=== PATIENT | male | born 1995 | race Caucasian/White ===

== ENCOUNTER → 2017-10-08 | Outpatient (CLI) | payer BC ==
[2017-10-08 14:28] VITALS: BP 147/82; PULSE 85; RESP 15; TEMP 97.5; BMI 50.7
--- NOTE | 2017-10-08 15:43 | P.HPBAR ---
Bariatric H&P - History & Physicial H&P Date: 10/08/17 History & Physicial: Visit/CC: VSG consult Patient initial contact: Initial weight: 169.734 kg Initial weight in pounds: 374.20 Height: 6 ft Initial BMI: 50.7 Last weight: Current weight: 169.734 kg Current weight in pounds: 374.20 Current BMI: 50.7 [place] body weight (based on NIH guidelines): 80.739 kg Excess body weight loss: 0.0% The patient is a 22 year-old M who presents for Bariatric Assessment. She presents today for sleeve gastrectomy consultation. Patient has had lifetime problems obesity. His BMI is 51. Past Medical History Past Medical History: No Reported History Additional Past Medical History / Comment(s): seasonal allergies History of Any Multi-Drug Resistant Organisms: None Reported Past Surgical History: Appendectomy Additional Past Surgical History / Comment(s): wisdom teeth extracted Past Anesthesia/Blood Transfusion Reactions: No Reported Reaction Additional Past Anesthesia/Blood Transfusion Reaction / Comm: No transfusion to date Smoking Status: Never smoker - Past Family History Father Family Medical History: Cancer, Diabetes Mellitus Additional Family Medical History / Comment(s): Non-hodgkins lymphoma Mother Family Medical History: No Reported History Brother(s) Family Medical History: No Reported History Surgical - Exam Vital Signs Temp Pulse Resp BP 97.5 F L 85 15 147/82 10/08/17 14:24 10/08/17 14:24 10/08/17 14:24 10/08/17 14:24 - General well developed, no distress - Eyes PERRL - ENT normal pinna - Neck no masses - Respiratory normal expansion - Cardiovascular Rhythm: regular - Abdomen Abdomen: soft, non tender Bariatric Assessment & Plan Plan: Morbid obesity with severe coronary disease. Patient will be scheduled for sleeve gastrectomy once his insurance authorization is performed. I lengthy discussion with patient regarding gastric sleeve surgery. I went over the risks and benefits procedure including conversion open procedure and injury to the stomach liver spleen. I discussed the risk of gastric staple line disruption, bleeding or perforation. Patient was scheduled for EGD. Bariatric Checklist Checklist: Plan: Checklist: EGD: 1. Hiatal hernia: 2. H. Pylori: HgbA1c: Vitamin D: Smoking: Never smoker Primary care physician referral: jennifer riggs ([place], [place]) Psychiatry clearance: Cardiology clearance: Sleep study: Diet journal: VTE risk score: VTE risk level: Rehab needs at discharge:
[2017-10-08 16:22] LABS: HCT 44.5 % (39.0-53.0); HGB 14.9 gm/dL (13.0-17.5); MCH 29.6 pg (25.0-35.0); MCHC 33.5 g/dL (31.0-37.0); MCV 88.3 fL (80.0-100.0); Mean Platelet Volume 7.1; Platelet Count 207 k/uL (150-450); RBC 5.04 m/uL (4.30-5.90); RDW 12.9 % (11.5-15.5); WBC 6.4 k/uL (3.8-10.6)
[2017-10-09 01:09] LABS: Vitamin D 25 Hydroxy 14.3 ng/mL (30.0-100.0)
[2017-10-09 04:01] LABS: Hemoglobin A1C 5.1 % (4.0-6.0)
== END | disposition home or self-care (01) ==
LOC: BARWHC3 14:14
PROVIDERS: ATTEND Family Medicine
DX: E66.01 Morbid (severe) obesity due to excess calories (principal); I25.10 Atherosclerotic heart disease of native coronary artery without angina pectoris; E44.1 Mild protein-calorie malnutrition; J30.2 Other seasonal allergic rhinitis; Z68.43 Body mass index [BMI] 50.0-59.9, adult; Z98.890 Other specified postprocedural states
CPT/HCPCS: 36415; 82306; 82607; 83036; 84443; 85027; 93005; 99201

== ENCOUNTER 2017-10-19 08:28 | Day surgery (SDC) | payer BC ==
[2017-10-17 09:31] VITALS: BMI 49.1
[~2017-10-19 08:28] MED LIST: LACTATED RINGERS 1,000 ML IV SCH; LIDOCAINE 1% 20 ML VIAL (10MG/ML) FOR IV START INTRADERMA PRN
[2017-10-19 09:53] VITALS: TEMP 98
[2017-10-19] MEDS ORDERED: PROPOFOL 10 MG/ML 20 ML VIAL IV ONE (10:05)
[2017-10-19] MEDS ORDERED: LIDOCAINE 1% INJ 10MG/ML (20 ML MDV) ONE (10:05)
[2017-10-19] MEDS ORDERED: GLYCOPYRROLATE 0.2 MG/ML 2 ML VIAL ONE (10:05)
--- NOTE | 2017-10-19 10:13 | P.GSHP ---
History of Present Illness H&P Date: 10/19/17 Chief Complaint: GERD, morbid obesity This a 20-year-old male with BMI 49. Patient presents today for EGD. He's had issues with GERD. Past Medical History Past Medical History: No Reported History Additional Past Medical History / Comment(s): seasonal allergies History of Any Multi-Drug Resistant Organisms: None Reported Past Surgical History: Appendectomy Additional Past Surgical History / Comment(s): wisdom teeth extracted Past Anesthesia/Blood Transfusion Reactions: No Reported Reaction Additional Past Anesthesia/Blood Transfusion Reaction / Comment(s): No transfusion to date Past Psychological History: No Psychological Hx Reported Smoking Status: Never smoker Past Alcohol Use History: Rare Past Drug Use History: None Reported - Past Family History Father Family Medical History: Cancer, Diabetes Mellitus Additional Family Medical History / Comment(s): Non-hodgkins lymphoma Mother Family Medical History: No Reported History Brother(s) Family Medical History: No Reported History Medications and Allergies Home Medications Medication Instructions Recorded Confirmed Type Cetirizine HCl [Zyrtec] 10 mg PO DAILY PRN 10/08/17 10/19/17 History Allergies Allergy/AdvReac Type Severity Reaction Status Date / Time banana Allergy Severe Anaphylaxis Verified 10/19/17 09:46 hazelnut Allergy Severe Anaphylaxis Verified 10/19/17 09:46 walnut Allergy Severe Anaphylaxis Verified 10/19/17 09:46 Surgical - Exam Vital Signs Temp Pulse Resp BP Pulse Ox 98.0 F 77 18 134/78 100 10/19/17 09:51 10/19/17 09:51 10/19/17 09:51 10/19/17 09:51 10/19/17 09:51 - General well developed, no distress - Eyes PERRL - ENT normal pinna - Neck no masses - Respiratory normal expansion - Cardiovascular Rhythm: regular - Abdomen Abdomen: soft, non tender Assessment and Plan Assessment: Morbid obesity with BMI 49 GERD we'll perform EGD.
--- NOTE | 2017-10-19 10:20 | P.OP ---
Date of Procedure: 10/19/17 Preoperative Diagnosis: Morbid obesity BMI 49 GERD Postoperative Diagnosis: Antral gastritis Anesthesia: MAC Surgeon: Refugio Bernard Pathology: other (Antrum) Condition: stable Disposition: PACU Description of Procedure: The patient's placed on the endoscopy table in the lateral position. He received IV sedation. The gastroscope placed oropharynx passed in the esophagus into the stomach. Scope was then placed through the pylorus. The first and second portion of the duodenum appeared normal. Scope was then brought back the antrum this was mildly inflamed. A biopsies was performed. The scope was then retroflexed and the remainder stomach appeared normal. There was no significant hiatal hernia. The GE junction was at 40 cm. The distal esophagus appeared mildly inflamed a biopsies was performed. The proximal esophagus appeared normal. Scope was withdrawn for patient.
[2017-10-19 10:41] VITALS: BP 107/64; PULSE 56; RESP 17
== END 2017-10-19 10:50 | disposition home or self-care (01) ==
LOC: ORWHC2ENDO 08:28
PROVIDERS: ATTEND Surgery
DX: K29.50 Unspecified chronic gastritis without bleeding (principal); E66.01 Morbid (severe) obesity due to excess calories; Z68.42 Body mass index [BMI] 45.0-49.9, adult; Z80.7 Family history of other malignant neoplasms of lymphoid, hematopoietic and related tissues; Z79.899 Other long term (current) drug therapy
CPT/HCPCS: 88305; 43239; J2001; J2704

== ENCOUNTER → 2017-12-24 | Outpatient (CLI) | payer BC ==
[2017-12-24 15:09] VITALS: BMI 51.5
== END | disposition home or self-care (01) ==
LOC: BARWHC3 08:31
PROVIDERS: ATTEND Surgery
DX: E66.01 Morbid (severe) obesity due to excess calories (principal)
CPT/HCPCS: 97804

== ENCOUNTER → 2018-05-27 | Outpatient (CLI) | payer BC ==
[2018-05-27 14:53] VITALS: BP 144/88; PULSE 82; TEMP 98.2; BMI 51.7
--- NOTE | 2018-05-31 14:41 | P.HPBAR ---
Bariatric H&P - History & Physicial H&P Date: 05/27/18 History & Physicial: Visit/CC: PRESURGICAL VISIT Patient initial contact: Initial weight: 169.734 kg Initial weight in pounds: 374.20 Height: 6 ft Initial BMI: 50.7 Last weight: Current weight: 173.272 kg Current weight in pounds: 382.00 Current BMI: 51.7 [place] body weight (based on NIH guidelines): 80.739 kg Excess body weight loss: The patient is a 22 year-old M who presents for Bariatric Assessment. Patient presents today for presurgical consultation for sleeve gastrectomy. He has had issues with morbid obesity. His BMI is 52. He's developed severe comorbidities related to morbid obesity. He is interested in the gastric sleeve. Past Medical History Past Medical History: No Reported History Additional Past Medical History / Comment(s): Seasonal allergies. History of Any Multi-Drug Resistant Organisms: None Reported Past Surgical History: Appendectomy Additional Past Surgical History / Comment(s): [place] teeth extracted. Past Anesthesia/Blood Transfusion Reactions: No Reported Reaction Additional Past Anesthesia/Blood Transfusion Reaction / Comm: No transfusion to date. Past Psychological History: No Psychological Hx Reported Smoking Status: Never smoker Past Alcohol Use History: Rare Past Drug Use History: None Reported - Past Family History Father Family Medical History: Cancer, Diabetes Mellitus Additional Family Medical History / Comment(s): Non-hodgkins lymphoma. Mother Family Medical History: No Reported History Brother(s) Family Medical History: No Reported History Surgical - Exam Vital Signs Temp Pulse BP 98.2 F 82 144/88 05/27/18 14:51 05/27/18 14:51 05/27/18 14:51 - General well developed, no distress - Eyes PERRL - ENT normal pinna - Neck no masses - Respiratory normal expansion - Cardiovascular Rhythm: regular - Abdomen Abdomen: soft, non tender Bariatric Assessment & Plan Plan: Morbid obesity with BMI 52. Patient has a good understanding of the sleeve gastrectomy. Went over the risks and benefits of procedure including complications such as gastric perforation bleeding or scarring. The patient was scheduled for EGD. Bariatric Checklist Checklist: Plan: Checklist: EGD: 1. Hiatal hernia: 2. H. Pylori: HgbA1c: Vitamin D: Smoking: Never smoker Primary care physician referral: jennifer riggs ([place], [place]) Psychiatry clearance: Cardiology clearance: Sleep study: Diet journal: VTE risk score: VTE risk level: Rehab needs at discharge:
== END | disposition home or self-care (01) ==
LOC: BARWHC3 13:25
PROVIDERS: ATTEND Surgery
DX: E66.01 Morbid (severe) obesity due to excess calories (principal); Z68.43 Body mass index [BMI] 50.0-59.9, adult; Z90.49 Acquired absence of other specified parts of digestive tract
CPT/HCPCS: 99211

== ENCOUNTER → 2018-05-27 | Outpatient (CLI) | payer BC ==
[2018-05-27 15:24] LABS: Basophils # (A) 0.1 k/uL (0-0.2); Basophils % (A) 1 %; Eosinophils # (A) 0.5 k/uL (0-0.7); Eosinophils % (A) 7 %; HGB 15.6 gm/dL (13.0-17.5); Lymphocytes # (A) 1.5 k/uL (1.0-4.8); Lymphocytes % (A) 20 %; MCH 30.2 pg (25.0-35.0); MCHC 33.2 g/dL (31.0-37.0); MCV 90.9 fL (80.0-100.0); Mean Platelet Volume 6.7; Monocytes # (A) 0.5 k/uL (0-1.0); Monocytes % (A) 6 %; Neutrophils # (A) 4.6 k/uL (1.3-7.7); Neutrophils % (A) 63 %; Platelet Count 240 k/uL (150-450); RBC 5.17 m/uL (4.30-5.90); RDW 12.6 % (11.5-15.5); WBC 7.3 k/uL (3.8-10.6)
[2018-05-27 15:31] LABS: ALT 37 U/L (21-72); AST 27 U/L (17-59); Albumin 4.9 g/dL (3.5-5.0); Alkaline Phosphatase 65 U/L (38-126); Anion Gap 13 mmol/L; Blood Urea Nitrogen 25 mg/dL (9-20); Calcium 9.9 mg/dL (8.4-10.2); Carbon Dioxide 21 mmol/L (22-30); Chloride 104 mmol/L (98-107); Glucose 86 mg/dL (74-99); Potassium 4.3 mmol/L (3.5-5.1); Sodium 138 mmol/L (137-145); Total Bilirubin 0.5 mg/dL (0.2-1.3); Total Protein 7.8 g/dL (6.3-8.2)
== END ==
LOC: LABPAT 13:57
PROVIDERS: ATTEND Surgery
DX: Z01.812 Encounter for preprocedural laboratory examination (principal)
CPT/HCPCS: 36415; 80053; 85025

== ENCOUNTER 2018-05-29 07:46 | Inpatient (IN) | payer BC ==
[2018-05-24 11:45] VITALS: BMI 48.7
[~2018-05-29 07:46] MED LIST changes: +ENOXAPARIN 40 MG/0.4 ML SYRINGE SQ ONE; -LACTATED RINGERS 1,000 ML IV SCH
--- NOTE | 2018-05-29 11:30 | P.GSHP ---
History of Present Illness H&P Date: 05/29/18 Chief Complaint: Morbid obesity This a 22-year-old male with history of morbid obesity. Patient presents today for laparoscopic sleeve gastrectomy. Patient has had lifetime problems obesity. He has developed severe comorbidities related to morbid obesity. Patient has been well detailed on the procedure sleeve gastric. He understood the risks and benefits of procedure including possible conversion to the open procedure and injury to the stomach liver or spleen. Past Medical History Past Medical History: No Reported History Additional Past Medical History / Comment(s): Seasonal allergies. History of Any Multi-Drug Resistant Organisms: None Reported Past Surgical History: Appendectomy Additional Past Surgical History / Comment(s): [place] teeth extracted. Past Anesthesia/Blood Transfusion Reactions: No Reported Reaction Additional Past Anesthesia/Blood Transfusion Reaction / Comment(s): No transfusion to date. Past Psychological History: No Psychological Hx Reported Smoking Status: Never smoker Past Alcohol Use History: Rare Past Drug Use History: None Reported - Past Family History Father Family Medical History: Cancer, Diabetes Mellitus Additional Family Medical History / Comment(s): Non-hodgkins lymphoma. Mother Family Medical History: No Reported History Brother(s) Family Medical History: No Reported History Medications and Allergies Home Medications Medication Instructions Recorded Confirmed Type No Known Home Medications 05/24/18 05/27/18 History Allergies Allergy/AdvReac Type Severity Reaction Status Date / Time banana Allergy Severe Anaphylaxis Verified 05/27/18 14:53 hazelnut Allergy Severe Anaphylaxis Verified 05/27/18 14:53 walnut Allergy Severe Anaphylaxis Verified 05/27/18 14:53 Surgical - Exam BMI 50 - General well developed, no distress - Eyes PERRL - ENT normal pinna - Neck no masses - Respiratory normal expansion - Abdomen Abdomen: soft, non tender Assessment and Plan Assessment: Morbid obesity, we'll perform laparoscopic sleeve gastrectomy.
[2018-05-29] MEDS: LACTATED RINGERS 1,000 ML IV SCH (13:15)
[2018-05-29] MEDS ORDERED: ONDANSETRON 4 MG/2 ML VIAL IVP ONE ×2 (13:25→16:14)
[2018-05-29] MEDS ORDERED: DEXAMETHASONE SOD PHOSPHATE 10 MG/ML 1 ML VIAL IV ONE (13:26)
[2018-05-29] MEDS ORDERED: LIDOCAINE 1% INJ 10MG/ML (20 ML MDV) ONE (14:43)
[2018-05-29] MEDS ORDERED: GLYCOPYRROLATE 0.2 MG/ML 2 ML VIAL ONE (14:43)
[2018-05-29] MEDS ORDERED: ROCURONIUM BROMIDE 10 MG/ML 10 ML VIAL IV ONE (14:43)
[2018-05-29] MEDS ORDERED: NEOSTIGMINE 1 MG/ML 10 ML VIAL ONE (14:43)
[2018-05-29] MEDS ORDERED: fentaNYL (PF) 50 MCG/ML 2 ML AMP ONE (14:43)
[2018-05-29] MEDS ORDERED: PROPOFOL 10 MG/ML 20 ML VIAL IV ONE (14:43)
[2018-05-29] MEDS ORDERED: MIDAZOLAM 2 MG/2 ML VIAL ONE (14:43)
[2018-05-29] MEDS ORDERED: SUCCINYLCHOLINE CHLORIDE 100 MG/5 ML SYR IV ONE (14:43)
[2018-05-29] MEDS ORDERED: BUPIVACAIN-EPI 0.25%-1:200,000 30 ML VIAL SQ ONE (14:57)
[2018-05-29] MEDS ORDERED: HYOSCYAMINE ORAL DROPS 1.875 MG/15 ML BOTTLE PO PRN (15:49)
[2018-05-29] MEDS ORDERED: NALOXONE 0.4 MG/ML 1 ML VIAL IV PRN (15:49)
[2018-05-29] MEDS ORDERED: SIMETHICONE 40 MG/0.6 ML DROPS 2,000 MG/30 ML BOTTLE PO PRN (15:49)
[2018-05-29] MEDS ORDERED: HYDROcodone/APAP 15 ML SOLUTION PO PRN (15:49)
[2018-05-29] MEDS ORDERED: diphenhydrAMINE 50 MG/ML 1 ML VIAL IVP PRN (15:49)
--- NOTE | 2018-05-29 15:49 | P.OP ---
Date of Procedure: 05/29/18 Preoperative Diagnosis: Morbid obesity Postoperative Diagnosis: Morbid obesity Procedure(s) Performed: Laparoscopic sleeve gastrectomy Anesthesia: REJI Surgeon: Refugio Bernard Estimated Blood Loss (ml): 10 Pathology: other (Stomach) Condition: stable Disposition: PACU Description of Procedure: The patient was placed on the operating room table in the supine position. She received general anesthesia and then was placed in dorsal lithotomy position. Her abdomen was prepped and draped in sterile fashion. The skin incision sites were anesthetized 1% local Xylocaine. And then the skin was incised with an 11 blade in the left lateral position. Using a blade less trocar under direct visualization the peritoneal cavity was entered. The abdomen was insufflated and then a 5 mm laparoscope was placed into the peritoneal cavity. A 5 mm trocar was placed in the right epigastric, and right lateral position. A 15 mm trocar was placed in the supra-umbilical position and another 5 mm trocar was placed in the left lateral position. The left lateral lobe of the liver was retracted. The stomach was visualized. The greater curvature of the stomach was then dissected using the Harmonic scissors. The dissection occurred approximately 5 cm from the pylorus to the level of the left sujit. There was no hiatal hernia seen. At this point a 40-Nigerian bougie dilator was placed the oropharynx and passed into the esophagus and into the stomach by the EMBEDDED ENGINEER. The sleeve gastrectomy was performed by using the powered echelon stapler with a seam guard buttress material. Sequential firings of the stapler were performed. The gastric remnant was then brought out through the 15 mm trocar site. The dilator was withdrawn. And a orogastric tube was replaced into the stomach. The stomach was insufflated with 200 mL of methylene blue normal saline. There was no evidence of extravasation. The abdomen was irrigated there is no bleeding seen. The Jed-Reyes device was used to close the 15 mm trocar with 0 Vicryl. Skin was closed with interrupted 3-0 Monocryl sutures once the trochars withdrawn. Dermabond dressing was applied. Patient was sent to recovery in stable condition.
[2018-05-29] MEDS ORDERED: LACTATED RINGERS 1,000 ML IV ONE (15:57)
[2018-05-29] MEDS: HYDROmorphone 0.5 MG/0.5 ML SYRINGE IVP PRN ×4 (16:14→17:03)
[2018-05-29] MEDS: ALBUTEROL NEBULIZED 2.5 MG/3 ML INHALATION SCH ×2 (16:51→20:32)
[2018-05-29] MEDS: KETOROLAC 30 MG/ML 1 ML VIAL IVP SCH ×2 (17:24→23:47)
[2018-05-29] MEDS: 0.9% NACL WITH KCL 20 MEQ/L 1,000 ML IV SCH ×2 (20:15→23:48)
[2018-05-29] MEDS: HYDROmorphone 1 MG/ML 1 ML SYRINGE IVP PRN (20:15)
--- NOTE | 2018-05-29 20:45 | P.CONS ---
History of Present Illness - Reason for Consult Consult date: 05/29/18 medical management Requesting physician: Refugio Bernard - Chief Complaint medical management - History of Present Illness The patient is a morbidly obese male with no significant past medical history who is currently admitted to general surgery service under and is currently postop day #0 after having a sleeve gastrectomy. The patient complains of mild to moderate epigastric and abdominal pain postsurgically has no other complaints. He denies chest pain, He denies shortness of breath, nausea or vomiting. The patient appears in good spirits and is currently not talking to his father also had similar procedure done earlier today. The patient denies any history of hypertension, despite review of his records indicating elevated blood pressure. He denies any headaches or blurry vision. Review of records indicates the patient's blood pressure has been elevated systolically up to 155. Currently receiving perioperative antibiotics with Unasyn Review of Systems Pertinent positives per HPI all other review of systems otherwise negative Past Medical History Past Medical History: No Reported History Additional Past Medical History / Comment(s): Seasonal allergies. History of Any Multi-Drug Resistant Organisms: None Reported Past Surgical History: Appendectomy Additional Past Surgical History / Comment(s): [place] teeth extracted. Past Anesthesia/Blood Transfusion Reactions: No Reported Reaction Additional Past Anesthesia/Blood Transfusion Reaction / Comm: No transfusion to date. Past Psychological History: No Psychological Hx Reported Smoking Status: Never smoker Past Alcohol Use History: Rare Past Drug Use History: None Reported - Past Family History Father Family Medical History: Cancer, Diabetes Mellitus Additional Family Medical History / Comment(s): Non-hodgkins lymphoma. Mother Family Medical History: No Reported History Brother(s) Family Medical History: No Reported History Medications and Allergies Home Medications Medication Instructions Recorded Confirmed Type No Known Home Medications 05/24/18 05/29/18 History Allergies Allergy/AdvReac Type Severity Reaction Status Date / Time banana Allergy Severe Anaphylaxis Verified 05/29/18 17:34 hazelnut Allergy Severe Anaphylaxis Verified 05/29/18 17:34 walnut Allergy Severe Anaphylaxis Verified 05/29/18 17:34 Physical Exam Vitals: Vital Signs Temp Pulse Pulse Resp BP Pulse Ox 05/29/18 19:53 97.9 F 100 98 18 122/74 05/29/18 18:47 78 145/85 05/29/18 18:30 78 145/75 05/29/18 18:15 59 L 145/76 05/29/18 18:00 74 146/75 05/29/18 17:45 76 149/75 05/29/18 17:34 16 05/29/18 17:30 74 149/79 05/29/18 17:15 98.2 F 75 148/79 99 05/29/18 17:00 71 16 148/70 99 05/29/18 16:45 70 16 149/70 99 05/29/18 16:30 69 16 152/72 99 05/29/18 16:15 71 16 147/72 98 05/29/18 16:00 97.8 F 82 16 149/72 95 05/29/18 15:54 95 77 130/70 05/29/18 13:09 98.3 F 90 16 155/74 100 Intake and Output 05/29/18 05/29/18 05/29/18 06:59 14:59 22:59 Intake Total 1050 150 Output Total 5 Balance 1050 145 Intake: IV 1050 150 Output: Estimated Blood Loss 5 Other: Weight 172.365 kg Constitutional: No acute distress, conversant, pleasant Eyes: Anicteric sclerae, moist conjunctiva, no lid-lag, PERRLA ENMT: NC/AT,Oropharynx clear, no erythema, exudates Neck:Supple, FROM, no masses, or JVD, No carotid bruits; No thyromegaly Lungs: Clear to auscultation, Clear to percussion, Normal respiratory effort, no accessory muscle use Cardiovascular: Heart regular in rate and rhythm, No murmurs, gallops, or rubs no peripheral edema Abdominal: Soft Nontender, nom distended, no guarding, no rebound or rigidity, Normoactive bowel sounds No hepatomegaly, No splenomegaly, No palpable mass No abdominal wall hernia noted Skin: Normal temperature, tone, texture, turgor, No induration No subcutaneous nodules, No rash, lesions, No ulcers Extremities:No digital cyanosis No clubbing, Pedal pulses intact and symmetrical Radial pulses intact and symmetrical Normal gait and station, No calf tenderness Psychiatric: Alert and oriented to person, place and time, Appropriate affect Intact judgement Neuro: Muscles Strength 5/5 in all 4 extremities, Sensation to light touch grossly present throughout, Cranial nerves II-XII grossly intact. No focal sensory deficits Assessment and Plan (1) Elevated blood pressure reading Current Visit: Yes Status: Acute Code(s): R03.0 - ELEVATED BLOOD-PRESSURE READING, W/O DIAGNOSIS OF HTN SNOMED Code(s): 36023142 (2) Morbid obesity Current Visit: Yes Status: Acute Code(s): E66.01 - MORBID (SEVERE) OBESITY DUE TO EXCESS CALORIES SNOMED Code(s): 986774919 (3) Status post laparoscopic sleeve gastrectomy Current Visit: Yes Status: Acute Code(s): Z98.84 - BARIATRIC SURGERY STATUS SNOMED Code(s): 847936386 Plan: The patient is currently hemodynamically stable with a systolic blood pressure has normalized, previously elevated possibly secondary to pain. No previous history of hypertension hold off on any antihypertensive therapy at this time, we'll continue to monitor his blood pressures closely. We'll defer to primary team regarding ongoing pain management. We'll continue to monitor his clinicall course CODE STATUS Full code Discussed plan of care with the patient/father GI and DVT prophylaxis
[2018-05-29] MEDS: ONDANSETRON 4 MG/2 ML VIAL IVP PRN (21:26)
[2018-05-29] MEDS: AMPICILLIN-SULBACTAM 3 GM in SODIUM CHLORIDE 0.9% 100 ML IVPB SCH (22:40)
[2018-05-30] MEDS ORDERED: ENOXAPARIN 40 MG/0.4 ML SYRINGE SQ SCH (02:00)
[2018-05-30] MEDS: AMPICILLIN-SULBACTAM 3 GM in SODIUM CHLORIDE 0.9% 100 ML IVPB SCH (03:09)
[2018-05-30] MEDS: 0.9% NACL WITH KCL 20 MEQ/L 1,000 ML IV SCH (04:05)
[2018-05-30] MEDS: KETOROLAC 30 MG/ML 1 ML VIAL IVP SCH ×2 (05:04→11:23)
[2018-05-30] MEDS: PANTOPRAZOLE 40 MG/10 ML VIAL IV SCH ×2 (07:09→07:11)
[2018-05-30] MEDS: HYDROmorphone 1 MG/ML 1 ML SYRINGE IVP PRN (07:10)
[2018-05-30] MEDS ORDERED: 1: MVI, ADULT NO.4 WITH VIT K 10 ML, THIAMINE 100 MG, FOLIC ACID 1 MG, POTASSIUM CHLORID IV SCH ×6 (08:00)
[2018-05-30 08:19] VITALS: BP 126/72; PULSE 99; RESP 19; TEMP 98.2
[2018-05-30 08:39] LABS: Basophils % (A) 0 %; Eosinophils % (A) 0 %; HGB 14.8 gm/dL (13.0-17.5); Lymphocytes % (A) 10 %; MCH 30.4 pg (25.0-35.0); MCV 92.2 fL (80.0-100.0); Mean Platelet Volume 6.7; Monocytes # (A) 0.8 k/uL (0-1.0); Monocytes % (A) 8 %; Neutrophils % (A) 80 %; Platelet Count 224 k/uL (150-450); RBC 4.87 m/uL (4.30-5.90); RDW 12.7 % (11.5-15.5); WBC 10.1 k/uL (3.8-10.6)
[2018-05-30 08:55] LABS: Anion Gap 13 mmol/L; Blood Urea Nitrogen 11 mg/dL (9-20); Carbon Dioxide 17 mmol/L (22-30); Chloride 109 mmol/L (98-107); Magnesium 1.9 mg/dL (1.6-2.3); Phosphorus 3.8 mg/dL (2.5-4.5); Potassium 4.8 mmol/L (3.5-5.1); Sodium 139 mmol/L (137-145)
[2018-05-30] MEDS: ALBUTEROL NEBULIZED 2.5 MG/3 ML INHALATION SCH ×2 (08:58→12:18)
--- NOTE | 2018-05-30 09:05 | P.PN ---
Subjective Progress Note Date: 05/30/18 Principal diagnosis: obesity Patient is a 22-year-old male past medical history of morbid obesity with BMI 48.8. He underwent elective sleeve gastrectomy with Dr. Bernard on . He had no immediate postoperative complications. He has already been up and walking with physical therapy. Patient seen and examined at bedside. He denies any chest pain, shortness of breath, nausea, or vomiting. He did have one episode of nausea. Vomited since resolved. He has been doing mouth swabs. He does still feel like there is a gas bubble in his stomach. His pain is well-controlled and he is hoping to go home today. He states that his family physician was worried about him developing diabetes and he therefore was sought gastrectomy for her continued weight loss. He has lost approximately 100 pounds 3-4 times in his life and gained it back. He reports he did have low vitamin D earlier this year and he took 12 weeks of therapy and sent stopped. We discussed having him obtain a vitamin D level by his PCP to ensure that his levels are adequate. Objective - Vital Signs Vital signs: Vital Signs Temp 98.2 F 05/30/18 07:25 Pulse 99 05/30/18 07:25 Resp 19 05/30/18 07:25 BP 126/72 05/30/18 07:25 Pulse Ox 95 05/30/18 07:25 Intake & Output 05/29/18 05/30/18 05/30/18 18:59 06:59 18:59 Intake Total 1200 450 Output Total 5 450 Balance 1195 0 Weight 172.365 kg Intake: IV 1200 Intake, IV Titration 450 Amount 0.9% NaCl with KCl 20 Meq 450 /l 1,000 ml @ 150 mls/hr IV .Q6H40M [facility] Rx#: [id number] Output: Urine 450 Estimated Blood Loss 5 Other: # Voids 1 - Exam General: non toxic, no distress, appears at stated age, obese Derm: warm, dry Head: atraumatic, normocephalic, symmetric Eyes: EOMI, no lid lag, anicteric sclera Mouth: no lip lesion, mucus membranes moist Cardiovascular: S1S2 reg, no murmur, positive posterior tibial pulse bilateral, Lungs: CTA bilateral, no rhonchi, no rales , no accessory muscle use Abdominal: soft, nontender to palpation, no guarding, no appreciable organomegaly Ext: no gross muscle atrophy, no edema, no contractures Neuro: CN II-XI grossly intact, no focal neuro deficits Psych: Alert, oriented, appropriate affect - Labs CBC & Chem 7: 05/30/18 07:51 Labs: Abnormal Lab Results - Last 24 Hours (Table) 05/30/18 Range/Units 07:51 Neutrophils # 8.0 H (1.3-7.7) k/uL Assessment and Plan Assessment: Patient is morbid obesity s/p sleeve gastrectomy Morbid obesity - s/p sleeve gasrectomy - Management per primary team - f/u PCP in 1 week Vitamin D def - has completed oral therapy per patient but no recheck - high incidence of vit D def prior to batric procedures. Recommended recheck with PCP. Patient aware. Hyperchloremic metabolic acidosis - D/C IVF once okay with surgery - should self correct - no need for recheck Patient medically optimized for discharge at the discretion of surgery. Thank you for allowing us to participate in the care of this patient. Do not hesitate to contact us with questions. Someone can be reached from the [facility] hospitalist group at all hours of the day at [phone].
--- NOTE | 2018-05-30 10:01 | FL ---
EXAMINATION TYPE: FL UGI DATE OF EXAM: 05/30/2018 CLINICAL HISTORY: Status post gastric sleeve Contrast: Omnipaque 350 50 mL The patient ingested contrast without difficulty or delay. Noted are postsurgical changes of gastric sleeve. There is no evidence for leak or obstruction. Contrast is noted within the duodenum. IMPRESSION: Post-surgical change of gastric sleeve without evidence for obstruction or leak at this point in time.
[2018-05-30] MEDS: LACTATED RINGERS 1,000 ML IV SCH (11:26)
--- NOTE | 2018-05-30 14:14 | P.DS ---
Providers Date of admission: 05/29/18 07:46 Expected date of discharge: 05/30/18 Attending physician: Refugio Bernard Consults: 05/29/18 15:49 Consult Physician Routine Consulting Provider: Gabriela Camacho Consult Reason/Comments: Medical management Do you want consulting provider notified?: Yes Primary care physician: Jc Warren DO Hospital Course: This a 22-year-old male who underwent laparoscopic leave yesterday. Please see chart for details. Procedures: Laparoscopic sleeve gastrectomy Plan - Discharge Summary Discharge Rx Participant: Yes New Discharge Prescriptions: New Docusate [Colace] 100 mg PO BID #20 capsule HYDROcodone/APAP 7.5-325MG [[place] 7.5-325] 1 tab PO Q4H PRN 3 Days #18 tab PRN Reason: Pain Bisacodyl [Dulcolax] 5 mg PO DAILY PRN #10 tablet. PRN Reason: Constipation Ondansetron Odt [Zofran Odt] 4 mg PO Q8HR PRN #9 tab PRN Reason: Nausea Simethicone 40 mg/0.6 ml Drops [Mylicon Drops] 40 mg PO PCHS PRN #30 ml PRN Reason: Gas Discharge Medication List Bisacodyl [Dulcolax] 5 mg PO DAILY PRN #10 tablet. 05/30/18 [Rx] Docusate [Colace] 100 mg PO BID #20 capsule 05/30/18 [Rx] HYDROcodone/APAP 7.5-325MG [[place] 7.5-325] 1 tab PO Q4H PRN 3 Days #18 tab 05/30 [Rx] Ondansetron Odt [Zofran Odt] 4 mg PO Q8HR PRN #9 tab 05/30/18 [Rx] Simethicone 40 mg/0.6 ml Drops [Mylicon Drops] 40 mg PO PCHS PRN #30 ml [Rx] Follow up Appointment(s)/Referral(s): [facility] [NON-STAFF] - 06/17/18 1:20 pm Patient Instructions/Handouts: Laparoscopic Sleeve Gastrectomy (DC)
[2018-05-30] MEDS: ONDANSETRON 4 MG/2 ML VIAL IVP PRN (15:17)
[2018-05-31] MEDS ORDERED: BISACODYL 5 MG TABLET.DR PO PRN (08:00)
== END 2018-05-30 16:00 | disposition home or self-care (01) | DRG 620 ==
LOC: 2ORMAIN 07:46 → 4SSUR 16:19
PROVIDERS: ADMIT Surgery; ATTEND Surgery
PROC: 0DB64Z3 Excision of Stomach, Percutaneous Endoscopic Approach, Vertical (ICD-10-PCS; principal; 2018-05-29 14:45)
DX: E66.01 Morbid (severe) obesity due to excess calories (principal); E87.2 Acidosis; E55.9 Vitamin D deficiency, unspecified; J30.2 Other seasonal allergic rhinitis; R03.0 Elevated blood-pressure reading, without diagnosis of hypertension; Z68.42 Body mass index [BMI] 45.0-49.9, adult; Z90.49 Acquired absence of other specified parts of digestive tract; Z80.7 Family history of other malignant neoplasms of lymphoid, hematopoietic and related tissues; Z83.3 Family history of diabetes mellitus; Z91.018 Allergy to other foods
CPT/HCPCS: 74240; 80051; 82310; 82565; 83735; 84100; 84520; 85025; 94760; 94762

== ENCOUNTER → 2018-06-05 | Outpatient (CLI) | payer BC ==
[2018-06-05 12:22] VITALS: BMI 49.8
[2018-06-05 12:34] VITALS: BP 139/83; PULSE 78; TEMP 97.7
== END | disposition home or self-care (01) ==
LOC: BARWHC3 10:40
PROVIDERS: ATTEND Surgery
DX: E66.01 Morbid (severe) obesity due to excess calories (principal); J30.2 Other seasonal allergic rhinitis; Z91.018 Allergy to other foods; Z91.010 Allergy to peanuts; Z83.3 Family history of diabetes mellitus; Z68.43 Body mass index [BMI] 50.0-59.9, adult
CPT/HCPCS: 97802; 99211

== ENCOUNTER → 2018-07-01 | Outpatient (CLI) | payer BC ==
[2018-07-01 13:28] VITALS: BP 119/82; PULSE 83; RESP 16; TEMP 98; BMI 47.3
--- NOTE | 2018-07-01 14:43 | P.HPBAR ---
Bariatric H&P - History & Physicial H&P Date: 07/01/18 History & Physicial: Visit/CC: sleeve follow-up Patient initial contact: Initial weight: 169.7 kg Initial weight in pounds: 374.13 Height: 6 ft Initial BMI: 50.7 Last weight: Current weight: 158.304 kg Current weight in pounds: 349.00 Current BMI: 47.3 [place] body weight (based on NIH guidelines): 158.304 kg Excess body weight loss: 100.0% The patient is a 22 year-old M who presents for Bariatric Assessment. The patient is doing quite well. He is an excellent weight loss. He's had some minimal GERD. Past Medical History Past Medical History: No Reported History Additional Past Medical History / Comment(s): Seasonal allergies. History of Any Multi-Drug Resistant Organisms: None Reported Past Surgical History: Appendectomy Additional Past Surgical History / Comment(s): [place] teeth extracted. Past Anesthesia/Blood Transfusion Reactions: No Reported Reaction Additional Past Anesthesia/Blood Transfusion Reaction / Comm: No transfusion to date. Smoking Status: Never smoker - Past Family History Father Family Medical History: Cancer, Diabetes Mellitus Additional Family Medical History / Comment(s): Non-hodgkins lymphoma. Mother Family Medical History: No Reported History Brother(s) Family Medical History: No Reported History Surgical - Exam Vital Signs Temp Pulse Resp BP 98 F 83 16 119/82 07/01/18 13:22 07/01/18 13:22 07/01/18 13:22 07/01/18 13:22 - General well developed, well nourished, no distress - Abdomen Abdomen: soft, non tender Bariatric Assessment & Plan Plan: Status post sleeve gastrectomy. The patient's GERD is minimal and will be observed. He'll follow-up in one month. Bariatric Checklist Checklist: Plan: Checklist: EGD: 1. Hiatal hernia: 2. H. Pylori: HgbA1c: Vitamin D: Smoking: Never smoker Primary care physician referral: jennifer riggs ([place], [place]) Psychiatry clearance: Cardiology clearance: Sleep study: Diet journal: VTE risk score: VTE risk level: Rehab needs at discharge:
== END ==
LOC: BARWHC3 12:32
PROVIDERS: ATTEND Surgery
DX: Z48.815 Encounter for surgical aftercare following surgery on the digestive system (principal); K21.9 Gastro-esophageal reflux disease without esophagitis; Z98.84 Bariatric surgery status
CPT/HCPCS: 97803; 99211

== ENCOUNTER → 2019-02-24 | Outpatient (CLI) | payer BC ==
[2019-02-24 14:45] VITALS: BP 115/62; PULSE 72; TEMP 97.7; BMI 32.4
[2019-02-24 15:12] LABS: HCT 40.7 % (39.0-53.0); HGB 13.9 gm/dL (13.0-17.5); MCH 31.3 pg (25.0-35.0); MCHC 34.2 g/dL (31.0-37.0); MCV 91.4 fL (80.0-100.0); Mean Platelet Volume 6.9; Platelet Count 202 k/uL (150-450); RBC 4.45 m/uL (4.30-5.90); RDW 13.2 % (11.5-15.5); WBC 5.4 k/uL (3.8-10.6)
--- NOTE | 2019-02-24 15:42 | P.HPBAR ---
Bariatric H&P - History & Physicial H&P Date: 02/24/19 History & Physicial: Visit/CC: 9 mos sleeve f/u Patient initial contact: Initial weight: 169.7 kg Initial weight in pounds: 374.12 Height: 6 ft Initial BMI: 50.7 Last weight: Current weight: 108.409 kg Current weight in pounds: 239.00 Current BMI: 32.4 [place] body weight (based on NIH guidelines): 80.739 kg Excess body weight loss: 68.8% The patient is a 23 year-old M who presents for Bariatric Assessment. Patient presents today for sleeve gastrectomy follow-up. He has lost a total 140 pounds. He describes some mild epigastric pain when eating. He is not sure. GERD. Past Medical History Past Medical History: No Reported History Additional Past Medical History / Comment(s): Seasonal allergies. History of Any Multi-Drug Resistant Organisms: None Reported Past Surgical History: Appendectomy, Bariatric Surgery Additional Past Surgical History / Comment(s): [place] teeth extracted. sleeve gastrectomy 05-29-18 Past Anesthesia/Blood Transfusion Reactions: No Reported Reaction Additional Past Anesthesia/Blood Transfusion Reaction / Comm: No transfusion to date. Past Psychological History: No Psychological Hx Reported Smoking Status: Never smoker Past Alcohol Use History: Rare Past Drug Use History: None Reported - Past Family History Father Family Medical History: Cancer, Diabetes Mellitus Additional Family Medical History / Comment(s): Non-hodgkins lymphoma. Mother Family Medical History: No Reported History Brother(s) Family Medical History: No Reported History Surgical - Exam Vital Signs Temp Pulse BP 97.7 F 72 115/62 02/24/19 14:36 02/24/19 14:36 02/24/19 14:36 - General well developed, well nourished, no distress - Eyes PERRL - ENT normal pinna - Abdomen Abdomen: soft, non tender Results - Labs 02/24/19 14:48 Bariatric Assessment & Plan Plan: Is post sleeve gastrectomy. Patient's excellent weight loss. He'll be scheduled for EGD to evaluate for GERD or gastric ulceration. Bariatric Checklist Checklist: Plan: Checklist: EGD: 1. Hiatal hernia: 2. H. Pylori: HgbA1c: Vitamin D: Smoking: Never smoker Primary care physician referral: jennifer riggs ([place], [place]) Psychiatry clearance: Cardiology clearance: Sleep study: Diet journal: VTE risk score: VTE risk level: Rehab needs at discharge:
[2019-02-24 19:41] LABS: Albumin 4.4 g/dL (3.80-4.90); Albumin/Globulin Ratio 2.59 (1.60-3.17); Anion Gap 5.1 mmol/L (4.00-12.00); BUN/Creat Ratio 18.89 Ratio (12.00-20.00); Calcium 9.3 mg/dL (8.7-10.3); Carbon Dioxide 28.9 mmol/L (21.6-31.8); Globulin 1.7 g/dL (1.6-3.3); Potassium 4.6 mmol/L (3.5-5.5); Total Bilirubin 0.5 mg/dL (0.3-1.2); Total Protein 6.1 g/dL (6.2-8.2)
[2019-02-24 20:42] LABS: Hemoglobin A1C 5.3 % (4.0-6.0)
== END | disposition home or self-care (01) ==
LOC: BARWHC3 13:55
PROVIDERS: ATTEND Surgery
DX: Z48.815 Encounter for surgical aftercare following surgery on the digestive system (principal); K21.9 Gastro-esophageal reflux disease without esophagitis; R63.4 Abnormal weight loss; R10.13 Epigastric pain; E66.01 Morbid (severe) obesity due to excess calories; Z68.32 Body mass index [BMI] 32.0-32.9, adult; E55.9 Vitamin D deficiency, unspecified; Z98.84 Bariatric surgery status; Z98.890 Other specified postprocedural states
CPT/HCPCS: 80053; 82306; 82607; 83036; 84425; 85027; 99211

== ENCOUNTER 2019-03-20 08:43 | Day surgery (SDC) | payer BC ==
[2019-03-18 10:12] VITALS: BMI 28.8
[2019-03-20 09:04] VITALS: RESP 16; TEMP 97.3
[2019-03-20] MEDS: LACTATED RINGERS 1,000 ML IV SCH ×2 (09:10→09:53)
[2019-03-20] MEDS ORDERED: LIDOCAINE 1% 20 ML VIAL (10MG/ML) FOR IV START INTRADERMA ONE (09:10)
[2019-03-20] MEDS ORDERED: LIDOCAINE 1% INJ 10MG/ML (20 ML MDV) ONE (09:51)
[2019-03-20] MEDS ORDERED: PROPOFOL 10 MG/ML 20 ML VIAL IV ONE (09:51)
--- NOTE | 2019-03-20 09:56 | P.GSHP ---
History of Present Illness H&P Date: 03/20/19 Chief Complaint: Dysphagia, indigestion This is a 43-year-old male complaints of dysphagia. He states when her recent Rich greasy foods he has indigestion and dysphagia. He does today for EGD. Past Medical History Past Medical History: No Reported History Additional Past Medical History / Comment(s): Seasonal allergies. History of Any Multi-Drug Resistant Organisms: None Reported Past Surgical History: Appendectomy, Bariatric Surgery Additional Past Surgical History / Comment(s): [place] teeth extracted. sleeve gastrectomy 05-29-18, EGD, Past Anesthesia/Blood Transfusion Reactions: No Reported Reaction Additional Past Anesthesia/Blood Transfusion Reaction / Comment(s): No tr ansfusion to date. Smoking Status: Never smoker - Past Family History Father Family Medical History: Cancer, Diabetes Mellitus Additional Family Medical History / Comment(s): Non-hodgkins lymphoma. Mother Family Medical History: No Reported History Brother(s) Family Medical History: No Reported History Medications and Allergies Home Medications Medication Instructions Recorded Confirmed Type No Known Home Medications 03/18/19 03/20/19 History Allergies Allergy/AdvReac Type Severity Reaction Status Date / Time banana Allergy Severe Anaphylaxis Verified 03/18/19 10:08 hazelnut Allergy Severe Anaphylaxis Verified 03/18/19 10:08 walnut Allergy Severe Anaphylaxis Verified 03/18/19 10:08 Surgical - Exam Vital Signs Temp Pulse Resp BP Pulse Ox 97.3 F L 57 L 16 118/63 100 03/20/19 08:59 03/20/19 08:59 03/20/19 08:59 03/20/19 08:59 03/20/19 08:59 - General well developed, well nourished, no distress - Eyes PERRL, normal ocular movement - ENT normal pinna - Neck no masses - Respiratory normal expansion - Cardiovascular Rhythm: regular - Abdomen Abdomen: soft, non tender Assessment and Plan Assessment: Dysphagia. We'll perform EGD.
--- NOTE | 2019-03-20 10:07 | P.OP ---
Date of Procedure: 03/20/19 Preoperative Diagnosis: Dysphagia Indigestion Postoperative Diagnosis: Mild antral gastritis Mild esophagitis Procedure(s) Performed: EGD Anesthesia: MAC Surgeon: Refugio Bernard Pathology: other (Antrum, esophagus) Condition: stable Disposition: PACU Description of Procedure: The patient's placed on the endoscopy table in the lateral position. He received IV sedation. The gastroscope placed oropharynx passed in the esophagus and into the stomach. Scope was placed through the pylorus. First and second portion of the duodenum appeared normal. Scope was then brought back the antrum was retracted. A biopsy was performed. The scope was then brought back to the stomach. Patient a previous sleeve gastrectomy. There is no evidence of any scarring or stricture of the sleeve. Was retroflexed and the esophagus was examined. There is no evidence of any hiatal hernia. The distal esophagus in flamed a biopsies performed. The GE junction was at 40 cm. The proximal esophagus appeared normal. Scope withdrawn for patient.
[2019-03-20 10:23] VITALS: BP 125/74; PULSE 75
--- NOTE | 2019-03-20 13:08 | NM ---
EXAMINATION TYPE: NM hepatobiliary w CCK DATE OF EXAM: 03/20/2019 COMPARISON: NONE HISTORY: Indigestion per order. Epigastric pain with diminished appetite as well as nausea and vomiti ng. TECHNIQUE: After the intravenous administration of 4.6 mCi Tc 99m Mebrofenin hepatobiliary scintigrap hy is performed. Immediate images post injection. FINDINGS: There is satisfactory initial accumulation of tracer by the liver. The gallbladder is visualized wit hin 20 minutes. The small bowel activity is noted within 30 minutes. At one hour CCK was administer ed, patient was injected with 2.1 mcg of Kinevac, and gallbladder ejection fraction is calculated at 91 %, in the normal range. Therefore there is no scintigraphic evidence of cystic or common bile hamida t obstruction to suggest acute cholecystitis. IMPRESSION: Ejection fraction is 91%, some consider this abnormal or a hyperkinetic response.
== END 2019-03-20 10:39 | disposition home or self-care (01) ==
LOC: ORWHC2ENDO 08:43
PROVIDERS: ATTEND Surgery
DX: K29.50 Unspecified chronic gastritis without bleeding (principal); K20.0 Eosinophilic esophagitis; Z98.84 Bariatric surgery status; Z83.3 Family history of diabetes mellitus; Z80.7 Family history of other malignant neoplasms of lymphoid, hematopoietic and related tissues; Z91.018 Allergy to other foods
CPT/HCPCS: 88305; 78227; 43239; A9537; J2805; J2001; J2704

== ENCOUNTER → 2019-05-30 | Day surgery (SDC) | payer BC ==
[2019-05-28 14:22] VITALS: BMI 28.8
[~2019-05-30] MED LIST changes: +BUPIVACAIN-EPI 0.25%-1:200,000 30 ML VIAL SQ ONE; +DEXAMETHASONE SOD PHOSPHATE 10 MG/ML 1 ML VIAL IV ONE; -ENOXAPARIN 40 MG/0.4 ML SYRINGE SQ ONE; +GLYCOPYRROLATE 0.2 MG/ML 2 ML VIAL ONE; +HEPARIN SODIUM,PORCINE 5,000 UNIT/ML 1 ML VIAL SQ ONE; +HYDROcodone/APAP 5-325MG 1 EACH TAB PO ONE; +LACTATED RINGERS 1,000 ML IV ONE; +LACTATED RINGERS 1,000 ML IV SCH; +LIDOCAINE 1% 20 ML VIAL (10MG/ML) FOR IV START INTRADERMA ONE; -LIDOCAINE 1% 20 ML VIAL (10MG/ML) FOR IV START INTRADERMA PRN; +LIDOCAINE 1% INJ 10MG/ML (20 ML MDV) ONE; +MIDAZOLAM 2 MG/2 ML VIAL IV PRN; +MIDAZOLAM 2 MG/2 ML VIAL ONE; +NEOSTIGMINE 1 MG/ML 10 ML VIAL ONE; +ONDANSETRON 4 MG/2 ML VIAL IVP ONE; +PROPOFOL 10 MG/ML 20 ML VIAL IV ONE; +ROCURONIUM BROMIDE 10 MG/ML 10 ML VIAL IV ONE; +SCOPOLAMINE 1.5MG/72HR PATCH TRANSDERM ONE; +SUCCINYLCHOLINE CHLORIDE 100 MG/5 ML SYR IV ONE; +fentaNYL (PF) 50 MCG/ML 2 ML AMP ONE
--- NOTE | 2019-05-30 07:55 | P.GSHP ---
History of Present Illness H&P Date: 05/30/19 Chief Complaint: right upper quadrant pain this a 23-year-old male who presents today for laparoscopic ostectomy. Patient's echo is referred from pain. His recent HIDA scan shows a hyperdynamic gallbladder with elevated ejection fraction. Past Medical History Past Medical History: No Reported History Additional Past Medical History / Comment(s): Seasonal allergies. History of Any Multi-Drug Resistant Organisms: None Reported Past Surgical History: Appendectomy, Bariatric Surgery Additional Past Surgical History / Comment(s): [place] teeth extracted, Sleeve Gastrectomy 05-29-18, EGD. Past Anesthesia/Blood Transfusion Reactions: No Reported Reaction Additional Past Anesthesia/Blood Transfusion Reaction / Comment(s): No transfusion to date. Past Psychological History: No Psychological Hx Reported Smoking Status: Never smoker Past Alcohol Use History: Rare Past Drug Use History: None Reported - Past Family History Father Family Medical History: Cancer, Diabetes Mellitus Additional Family Medical History / Comment(s): Non-hodgkins lymphoma. Mother Family Medical History: No Reported History Brother(s) Family Medical History: No Reported History Medications and Allergies Home Medications Medication Instructions Recorded Confirmed Type Multivitamins, Thera [Multivitamin 1 tab PO DAILY 05/28/19 05/28/19 History (formulary)] Allergies Allergy/AdvReac Type Severity Reaction Status Date / Time banana Allergy Severe Anaphylaxis Verified 05/28/19 14:14 hazelnut Allergy Severe Anaphylaxis Verified 05/28/19 14:14 walnut Allergy Severe Anaphylaxis Verified 05/28/19 14:14 Surgical - Exam Vital Signs Temp Pulse Resp BP Pulse Ox 97.8 F 71 18 131/65 100 05/30/19 06:22 05/30/19 06:22 05/30/19 06:22 05/30/19 06:22 05/30/19 06:22 - General well developed, well nourished, no distress - Eyes PERRL - ENT normal pinna - Neck no masses - Respiratory normal expansion - Cardiovascular Rhythm: regular - Abdomen Abdomen: soft, non tender Assessment and Plan Assessment: chronic cholecystitis Abnormal HIDA scan We'll perform laparoscopic cholecystectomy.
[2019-05-30 08:49] VITALS: TEMP 97.2
[2019-05-30] MEDS: HYDROmorphone 0.5 MG/0.5 ML SYRINGE IVP PRN ×2 (08:51→09:05)
--- NOTE | 2019-05-30 08:58 | P.OP ---
Date of Procedure: 05/30/19 Preoperative Diagnosis: cholecystitis Postoperative Diagnosis: cholecystitis Procedure(s) Performed: laparoscopic cholecystectomy Anesthesia: REJI Surgeon: Refugio Bernard Estimated Blood Loss (ml): 5 Pathology: other (gallbladder) Condition: stable Disposition: PACU Description of Procedure: The patient was placed on the operating table. The patient received a general endotracheal tube anesthesia. The patients abdomen was prepped and draped in the usual sterile fashion. Through an infraumbilical stab incision, the fascia of the anterior abdominal wall was grasped with a pair of Kochers and then the Veress needle was placed in the peritoneal cavity. Position of the Veress needle was confirmed with positive drop test. The abdomen was then insufflated. After adequate insufflation, the 10 mm trocar was placed in the peritoneal cavity. Following this the laparoscope was placed in the peritoneal cavity. The patient was placed in the head-up, right side up position and then a 5 mm trocar was placed in the right lateral and right subcostal position under direct visualization. A 8 mm trocar was placed in the epigastric position. The gallbladder was grasped in the fundus and infundibulum. Traction on the gallbladder was placed in the lateral and the cephalad positions. The triangle of Calot was visualized.. The cystic duct was bluntly dissected until the union of the cystic duct and common bile duct was seen. A critical view of safety was achieved. The cystic duct was then divided and sealed with the Harmonic scissors. A PDS Endoloop was then placed throughout the cystic duct stump. The cystic artery divided and sealed with the Harmonic scissors. The gallbladder was then removed from the liver bed using Harmonic scissors. The gallbladder was then extracted through the epigastric port site. Operative field was checked for any bleeding spots and Harmonic scissors was used to coagulate the liver bed. The abdomen was irrigated. The trocars were removed. The skin was closed using interrupted 3-0 Vicryl suture. Dermabond dressing were applied. The patient tolerated the procedure well.
[2019-05-30 09:32] VITALS: RESP 17
[2019-05-30 09:43] VITALS: BP 128/83; PULSE 58
== END ==
LOC: OR 06:08
PROVIDERS: ATTEND Surgery
DX: K81.1 Chronic cholecystitis (principal); Z91.048 Other nonmedicinal substance allergy status; Z98.84 Bariatric surgery status; Z83.3 Family history of diabetes mellitus; Z80.7 Family history of other malignant neoplasms of lymphoid, hematopoietic and related tissues; Z91.018 Allergy to other foods
CPT/HCPCS: 88304; 47562; J2250; J1644; J1100; J2710; J0690; J2405; J2001; J3010; J0330; J2704; J1170